=== PATIENT | male | born 1995 | race African-American/Black ===

== ENCOUNTER 2017-02-25 08:32 | Emergency (ER) | payer BC | END 2017-02-25 09:23 | disposition home or self-care (01) | LOC: SCSER 08:32 | DX: H61.21 Impacted cerumen, right ear (principal) | CPT/HCPCS: 69209 ==

== ENCOUNTER 2017-03-08 10:49 | Emergency (ER) | payer BC ==
[2017-03-08] MEDS ORDERED: Ondansetron ODT 4 MG TAB ONE (11:04)
== END 2017-03-08 11:03 | disposition home or self-care (01) ==
LOC: SCSER 10:49
DX: R05 Cough (principal); M79.1 Myalgia; R11.0 Nausea
CPT/HCPCS: 99283; Q0162

== ENCOUNTER 2017-04-06 06:52 | Day surgery (SDC) | payer OTHER ==
[2017-04-04 15:17] VITALS: BMI 26.6
[2017-04-06] MEDS ORDERED: Fentanyl 100 MCG/2 ML VIAL ONE ×2 (07:34→07:46)
[2017-04-06] MEDS ORDERED: Midazolam HCl 2 mg/2 ml Vial ONE ×2 (07:41→07:46)
[2017-04-06] MEDS ORDERED: CEFAZOLIN/Water 2 GM/20 ML SYRINGE ONE (08:28)
[2017-04-06] MEDS ORDERED: Bupivacaine/Epinephrine 0.25% 30 ML VIAL ONE (09:02)
[2017-04-06] MEDS ORDERED: Ketorolac Tromethamine 30 MG/ML VIAL ONE (09:48)
[2017-04-06] MEDS ORDERED: Propofol 200 MG/20 ML VIAL ONE (11:08)
[2017-04-06] MEDS ORDERED: Lidocaine 1% PF 5 ML VIAL ONE (11:08)
--- NOTE | 2017-04-06 11:30 | OP ---
DATE OF PROCEDURE: 04/06/2017 PREOPERATIVE DIAGNOSIS: Laceration of the extensor pollicis longus of the left thumb. POSTOPERATIVE DIAGNOSIS: Laceration of the extensor pollicis longus of the left thumb. PROCEDURE: Repair of extensor pollicis longus. SURGEON: Dr. Luis Gilliam PROCEDURE IN DETAIL: The patient was brought to the operating room and after administration of gener al anesthetic intubation, the left upper extremity was prepped and draped in the usual fashion and th e tourniquet was inflated. A small transverse scar over the dorsum of the proximal phalanx of the left thumb was identified and incorporated into the incision and limbs were created proximally and distally on either end of the tr ansverse incision. The extensor pollicis longus was immediately identified and noted not to have ret racted significantly. The distal and proximal ends were mobilized and trimmed and a repair was done using a 3-0 Ethibond modified Palomo stitch. This was then oversewn with a silver skull suture agai n using the 3-0 Ethibond. The repair appeared to be good and the tendon was noted to glide when the thumb tip was flexed and extended. Keeping the thumb extended, the tourniquet was released. The dharmesh mb was infiltrated with Marcaine and the skin was closed with nylon. A well-padded dressing and plas ter splint was applied and the patient was taken to the recovery room in satisfactory condition. He was monitored. When he was awake and stable, he was discharged home. He was given a prescription for pain medication, wound care instructions, and a followup appointment.
[2017-04-06] MEDS ORDERED: Acetaminophen/Codeine 30-300mg Tablet ONE (11:54)
== END 2017-04-06 12:32 | disposition home or self-care (01) ==
LOC: SDC 06:52
PROVIDERS: ATTEND Orthopaedic Surgery
PROC: 0KQD0ZZ Repair Left Hand Muscle, Open Approach (ICD-10-PCS; principal; 2017-04-06)
DX: S66.222A Laceration of extensor muscle, fascia and tendon of left thumb at wrist and hand level, initial encounter (principal)
CPT/HCPCS: 96374; J1885; J2001; J2250; J2704; J3010

== ENCOUNTER 2018-08-03 10:10 | Emergency (ER) | payer BC | END 2018-08-03 11:04 | disposition home or self-care (01) | LOC: SCSER 10:10 | DX: K59.00 Constipation, unspecified (principal) | CPT/HCPCS: 99283 ==

== ENCOUNTER 2022-12-19 16:32 | Emergency (ER) | payer BC, SELFPAY | END 2022-12-19 17:26 | disposition home or self-care (01) | LOC: ERS 16:32 | DX: J45.909 Unspecified asthma, uncomplicated (principal) | CPT/HCPCS: 99284 ==